=== PATIENT | male | born 1995 | race Caucasian/White ===

== ENCOUNTER 2019-05-20 07:53 | Day surgery (SDC) | payer BC ==
[2019-05-20] MEDS ORDERED: PROPOFOL INJ 200 MG/20 ML VIAL IV ONE (08:01)
[2019-05-20] MEDS ORDERED: FENTANYL CITRATE INJ/PF 100 MCG/2 ML AMPUL ONE (08:01)
[2019-05-20] MEDS ORDERED: MIDAZOLAM 2 MG/2 ML INJ ONE (08:01)
[2019-05-20] MEDS ORDERED: BUPIVACAINE HCL 0.5%/EPI 1:200000 INJ 1.8 ML CARTRIDGE ONE (09:01)
[2019-05-20] MEDS ORDERED: ONDANSETRON HCL INJ/PF 4 MG/2 ML SDV ONE (09:09)
[2019-05-20] MEDS ORDERED: DEXAMETHASONE SOD PHOS INJ 10 MG/1 ML VIAL ONE (09:09)
--- NOTE | 2019-05-22 08:43 | [facility] OPERATIVE REPORT E ---
[facility] Operative Report NAME: ROB GALLARDO AGE: 23Y DATE OF SURGERY: 05/20/2019 ROOM: PREOPERATIVE DIAGNOSES: 1. Nasal trauma. 2. Nasal pain. 3. Nasal deformities, acquired. 4. Nasal septal deviation. 5. Inferior turbinate hypertrophy. 6. Nasal dyspnea. POSTOPERATIVE DIAGNOSES: 1. Nasal trauma. 2. Nasal pain. 3. Nasal deformities, acquired. 4. Nasal septal deviation. 5. Inferior turbinate hypertrophy. 6. Nasal dyspnea. OPERATION PERFORMED: 1. Closed reduction of nasal fractures with internal packing and external splint with DICTATION ENDS DICTATING PHYSICIAN: KANA THORPE D.O. [id number] PHY#: [id number] ID: [id number] JOB#: [id number] ACCT: [id number] cc:KANA THORPE D.O. >
--- NOTE | 2019-05-23 20:10 | [facility] OPERATIVE REPORT E ---
[facility] Operative Report NAME: ROB GALLARDO AGE: 23Y DATE OF SURGERY: 05/20/2019 ROOM: PREOPERATIVE DIAGNOSES: 1. NASAL DEFORMITY ACQUIRED. 2. NASAL TRAUMA. 3. NASAL SEPTAL DEVIATION. 4. NASAL DYSPNEA. 5. INFERIOR TURBINATE HYPERTROPHY BILATERAL. POSTOPERATIVE DIAGNOSES: 1. NASAL DEFORMITY ACQUIRED. 2. NASAL TRAUMA. 3. NASAL SEPTAL DEVIATION. 4. NASAL DYSPNEA. 5. INFERIOR TURBINATE HYPERTROPHY BILATERAL. OPERATION: 1. Closed reduction of nasal fractures with stabilization. 2. Bilateral transnasal rigid endoscopy. 3. Exam under anesthesia of the nose. SURGEON: KANA THORPE D.O. ANESTHESIA: General MAC anesthesia. ANESTHESIA STAFF: Uziel Douglas CRNA. ESTIMATED BLOOD LOSS: 3 mL. FLUIDS: 500 mL. COMPLICATIONS: None. DRAINS: None. SPONGE COUNT: Verified. MATERIALS FORWARDED SPECIMEN: None. FINDINGS: 1. Moderate to severe right external nasal deviation involving bone and cartilage with a prominent dorsal hump. The overlying skin was intact and there was a well-healed nasal dorsal scar present. 2. Bilateral inferior turbinate hypertrophy. 3. There was no active bleeding, blood clots, sinonasal polyps, and there was no septal perforation noted. 4. There was also notable nasal septal deviation and bilateral inferior turbinate hypertrophy. INDICATIONS: This is a 23-year-old white male patient who was seen and evaluated in the [facility] office. The patient had been refer for and he complained of a history of recent nasal trauma within the last week. The patient was playing basketball and was hit in the nose with resulting nasal deformity and nasal dyspnea and nasal pain. The patient has also suffered prior nasal trauma. He denies a history of previous sinus or nasal surgery. After extensive discussion with the patient, the trauma was isolated to the nose. There was no loss of consciousness. The recommendation and plan was for closed reduction of nasal fractures with stabilization, bilateral rigid nasal endoscopy, and exam under anesthesia of the nose. The procedures and all of their risks and complications were all discussed in detail with the patient. He voiced an understanding of all that had been discussed, was in agreement, and consent was obtained. PROCEDURE: The patient was taken to the main operating room and was placed on the operating room table in the supine position. Appropriate monitors were placed. Using mask and IV access, general mask anesthesia was established. The patient next underwent a nasal examination with injection of local anesthetic with epinephrine to establish a nasal block. The patient then underwent bilateral transnasal rigid nasal endoscopy with findings as noted above. The patient next had a Sayer elevator inserted and it was used to mobilize the bony nasal pyramid. The fracture elements were mobilized into the midline. There was rolled Surgicel that was placed deep under the left side of the nasal pyramid for stabilization and support. There was reasonable contour and symmetry following the closed reduction. The dorsal hump that existed prior to surgery was still notable and essentially unchanged as the patient also has a history of prior nasal trauma. At this point the patient's nose was cleaned and dried followed by placement of Steri-Strips and an aluminum nasal pressure splint for external stabilization. The patient was then returned to the anesthesia staff and was allowed to emerge from general mask anesthesia. The patient was next transported to the postanesthesia recovery unit in stable condition. There were no complications. DICTATING PHYSICIAN: KANA THORPE D.O. [id number] PHY#: [id number] ID: [id number] JOB#: [id number] ACCT: [id number] cc:KANA THORPE D.O. >
== END 2019-05-20 10:37 | disposition home or self-care (01) ==
LOC: SC 07:53
PROVIDERS: ATTEND Otolaryngology
DX: S02.2XXA Fracture of nasal bones, initial encounter for closed fracture (principal); X58.XXXA Exposure to other specified factors, initial encounter; Y93.67 Activity, basketball; M95.0 Acquired deformity of nose; J34.2 Deviated nasal septum; R06.09 Other forms of dyspnea; J34.3 Hypertrophy of nasal turbinates
CPT/HCPCS: 00160; 21320; 31231; J2250; J3490; J3010; J2405; J2704; J1100; 160